=== PATIENT | female | born 1940 | race Caucasian/White ===

== ENCOUNTER 2025-01-28 19:55 | Emergency (ER) | payer MEDICARE, MEDICAID, SELFPAY ==
--- NOTE | 2025-01-28 20:01 | XR_ITS ---
Examination: AP chest single view One AP portable semiupright chest single view Date and time: January 28, 2025, 2053 hours Comparison March 01, 2023 INDICATIONS: Congestion and coughing 3 days. FINDINGS: No significant cardiac enlargement Ectatic thoracic aorta. No pneumonia or pulmonary edema Cervical orthopedic hardware IMPRESSION: No pneumonia or pulmonary edema
--- NOTE | 2025-01-28 20:02 | PD.EDURI ---
Upper Respiratory Inf. RME/HPI General Chief Complaint: Weakness Stated Complaint: GENERALIZED WEAKNESS Time Seen by Provider: 01/28/25 20:00 Arrival date/time: 01/28/25 19:55 Mode of arrival: EMS Limitations: no limitations RME / HPI RME / HPI Narrative: Patient is a 84-year-old female with a history of hypertension and COPD. She is here today with a 3-day history of runny nose, congestion, cough, and increased malaise. She normally uses a power chair for ambulation. She denies any fevers or chills. Has no chest pain. She has no vomiting but endorses some loose stools. She denies any blood with her loose stools. She has no urinary complaints. She states she went to her primary doctor today was evaluated, was advised to come to the ER for further evaluation but went home, called 911, and then was brought in. She has no other acute complaints or concerns. Related Data Home Medications ?Medication ?Instructions ?Recorded ?Confirmed albuterol sulfate 90 mcg/actuation 2 puff inhalation Q6H PRN sob 03/02/23 03/02/23 aerosol inhaler amlodipine 10 mg tablet 10 mg PO DAILY 03/02/23 03/02/23 baclofen 10 mg tablet 10 mg PO BIDPRN PRN Muscle Pain 03/02/23 03/02/23 cetirizine 10 mg tablet 10 mg PO DAILY 03/02/23 03/02/23 ergocalciferol (vitamin D2) 1,250 1,250 mcg PO QWEEK 03/02/23 03/02/23 mcg (50,000 unit) capsule fluticasone propionate 50 1 spray intranasal DAILY 03/02/23 03/02/23 mcg/actuation nasal spray,suspension zolpidem 10 mg tablet 10 mg PO HSPRN PRN Sleep 03/02/23 03/02/23 Previous Rx's ?Medication ?Instructions ?Recorded peg 3350-electrolytes 236 240 ml PO Q10M #4,000 mL 12/15/23 gram-22.74 gram-6.74 gram-5.86 gram solution (GaviLyte-G) Allergies Allergy/AdvReac Type Severity Reaction Status Date / Time No Known Allergies Allergy Unverified 12/13/22 10:02 Review of Systems Review of Systems Systems Reviewed: All systems reviewed, normal except as documented ED Exam General Limitations: Present no limitations General appearance: Present alert and in no apparent distress Head Head exam: Present atraumatic Eye Eye exam: Present normal appearance, PERRL and EOMI ENT ENT exam: Present normal exam, normal oropharynx and mucous membranes moist Neck Neck exam: Present normal inspection, full ROM and trachea midline Chest Chest inspection: Present normal inspection and symmetric chest wall rise Respiratory Respiratory exam: Present normal lung sounds bilaterally; Absent respiratory distress, wheezes or stridor Cardiovascular Cardiovascular exam: Present regular rate, normal rhythm and normal heart sounds Abdominal Exam Abdominal exam: Present soft; Absent distention, tenderness or guarding Extremities Exam Extremities exam: Present normal inspection and full ROM Back Exam Back exam: Present normal inspection and full ROM Neurological Exam Neurological exam: Present alert and oriented X3 Psychiatric Psychiatric exam: Present normal affect and normal mood Skin Skin exam: Present warm, dry, intact and normal color Course Quality Measures none Orders Category Date Time Status Bedside Influenza A&B Antigen Test NOW Care 01/28/25 20:01 Completed EKG (ED ONLY) *Do not use* NOW Care 01/28/25 20:01 Completed EKG (ED Only) Stat Exams 01/28/25 20:01 Ordered XR chest 1V Stat Exams 01/28/25 20:01 Completed BNP [B-Type Natriuretic Peptide] Stat Lab 01/28/25 20:21 Completed CBC Stat Lab 01/28/25 20:21 Completed CMP [Comprehensive Metabolic Panel] Stat Lab 01/28/25 20:21 Completed COVID-19 Antigen (In-House) Stat Lab 01/28/25 Ordered Lipase Stat Lab 01/28/25 20:21 Completed Mag [Magnesium] Stat Lab 01/28/25 20:21 Completed Troponin I Stat Lab 01/28/25 20:21 Completed UA, C/S IF [Urinalysis, C/S if Indicated] Stat Lab 01/28/25 22:20 Completed Acetaminophen Tab [Tylenol ES Tab] Med 01/28/25 22:52 Discontinued 1,000 mg PO X1 ONE Sodium Chloride 0.9% 1000 ml [Ns] 1,000 ml Med 01/28/25 21:22 Discontinued IV 999 mls/hr Vital Signs Vital signs: Vital Signs Temperature 97.6 F 01/28/25 20:03 Pulse Rate 86 01/28/25 20:03 Respiratory Rate 18 01/28/25 20:03 Blood Pressure 181/100 H 01/28/25 20:03 Pulse Oximetry (%) 93 L 01/28/25 20:03 Oxygen Delivery Method Room Air 01/28/25 20:03 Upper Respiratory Infection MDM Narrative MDM Narrative:: Patient is a 84-year-old female with a history of hypertension and COPD. She is here today with a 3-day history of runny nose, congestion, cough, and increased malaise. She normally uses a power chair for ambulation. She denies any fevers or chills. Has no chest pain. She has no vomiting but endorses some loose stools. She denies any blood with her loose stools. She has no urinary complaints. She states she went to her primary doctor today was evaluated, was advised to come to the ER for further evaluation but went home, called 911, and then was brought in. She has no other acute complaints or concerns. Patient data External records reviewed:: None Clinical information provided by:: patient and EMS Social determinants that could affect healthcare access:: none Patient has the following chronic illnesses:: Asthma, COPD, hypertension How is presenting disease/condition affected by chronic disease/condition?: exacerbated by Evaluation data The following diagnostics were reviewed and interpreted by me:: lab results (CBC is unremarkable, patient has hyponatremia sodium 130, bicarb is within normal limits at 25.6, creatinine 0.8, BNP is 234, chest x-ray shows no evidence of fluid overload or pneumonia, urinalysis unremarkable), radiology exam(s) (Clear expanded lungs without any mass or infiltrate.) and EKG tracing(s) Lab and/or radiology exams considered but not ordered:: n/a Interpretation Summary: Hyponatremia, COVID-19 Medications / Prescriptions Medications or Prescriptions considered but not ordered:: n/a Medication administrations:: Medication Administration History Discontinued Medications Acetaminophen (Acetaminophen 500 Mg Tablet) 1,000 mg PO X1 ONE Stop: 01/28/25 22:53 Sodium Chloride (Ns) 1,000 mls @ 999 mls/hr IV .Q1H1M ONE Stop: 01/28/25 22:22 Last Admin: 01/28/25 22:02 Dose: 999 mls/hr Documented By: SM See above Consultations Consultation(s) initiated? (list below): No Diagnosis Upper Respiratory Differential Diagnosis: upper respiratory infection, viral infection, influenza and pharyngitis Most likely diagnosis given after review of the tests above:: Hyponatremia, COVID-19 Admission Indicated Admission indicated?: not indicated Admission Request Was there a request for admission?: No Disposition Plan Disposition Plan: Discharge Discharge Attestation Discharge Attestation: The patient and all family members were given an opportunity to ask questions and understood the discharge instructions. Discharge instructions specifically effects, indications for sooner follow up or return to the emergency department, and the expected course of current diagnosis. Patient condition: Stable Discharge Plan Plan Patient Disposition: HOME (Self Care) Patient condition on transfer: Stable Prescriptions/Referrals Prescriptions/Med Rec: No Action cetirizine 10 mg tablet 10 mg PO DAILY Patient Comments: TAKE ONE TABLET BY MOUTH EVERY DAY FOR ALLERGY baclofen 10 mg tablet 10 mg PO BIDPRN PRN (Reason: Muscle Pain) Patient Comments: TAKE ONE TABLET BY MOUTH TWICE DAILY NEEDED FOR MUSCLE SPASMS ergocalciferol (vitamin D2) 1,250 mcg (50,000 unit) capsule 1,250 mcg PO QWEEK Patient Comments: TAKE ONE CAPSULE BY MOUTH ONCE A WEEK zolpidem 10 mg tablet 10 mg PO HSPRN PRN (Reason: Sleep) Patient Comments: TAKE ONE TABLET BY MOUTH AT BED TIME NEEDED FOR SLEEP amlodipine 10 mg tablet 10 mg PO DAILY Patient Comments: TAKE ONE TABLET BY MOUTH EVERY DAY FOR BLOOD PRESSURE albuterol sulfate 90 mcg/actuation HFA aerosol inhaler 2 puff INHALATION Q6H PRN (Reason: sob) Patient Comments: INHALE TWO PUFFS BY MOUTH EVERY 6 HOURS NEEDED FOR BREATHING AND SHORTNESS OF BREATH fluticasone propionate 50 mcg/actuation spray,suspension 1 spray intranasal DAILY Patient Comments: INSTILL ONE SPRAY IN EACH NOSTRIL EVERY DAY FOR ALLERGY Rx Instructions: 1 spray intranasally peg 3350-electrolytes [GaviLyte-G] 236-22.74-6.74 -5.86 gram recon soln 240 ml PO Q10M Qty: 4000 0RF Rx Instructions: until fecal effluent is clear Referrals: Delicia Bhakta PA-C [Primary Care Provider] - In 1 week Problem List Clinical Impression: COVID-19, Acute hyponatremia Patient/Caregiver Discharge Instructions Education Materials: COVID-19 Home Care Additional Instructions: - Maintain contact precautions as much as possible. - Use Tylenol and ibuprofen as needed for comfort. - Return here as needed for any worsening or emergent changes. Print Language: Bhutanese Stand Alone Forms: [facility] Award Info., Patient Portal Info Letter
[2025-01-28 20:03] VITALS: BP 181/100; PULSE 86; RESP 18; TEMP 36.4; O2SAT 93
[2025-01-28 20:33] LABS: Basophils # (Auto) 0.0 Thou/mm3 (0.0-0.2); Basophils % (Auto) 1 % (0-2.5); Eosinophils # (Auto) 0.0 Thou/mm3 (0.0-0.5); Eosinophils % (Auto) 1 % (0-10); Hematocrit 40.4 % (36.0-46.0); Hemoglobin 13.8 g/dL (12.0-16.0); Immature Granulocytes Auto 0.00 Thou/mm3 (0.00-0.00); Lymphocytes # (Auto) 1.6 Thou/mm3 (1.0-4.8); Lymphocytes % (Auto) 36 % (10-50); Mean Corpuscular HGB Conc 34.2 g/dl (31.0-37.0); Mean Corpuscular Hemoglobin 31.2 pg (25.0-35.0); Mean Corpuscular Volume 91 fL (80-100); Monocytes # (Auto) 0.6 Thou/mm3 (0.0-0.8); Monocytes % (Auto) 13 % (0-12); Neutrophils # (Auto) 2.2 Thou/mm3 (1.8-7.7); Neutrophils % (Auto) 50 % (37-80); Nucleated Red Blood Cell # 0.00 Thou/mm3 (0.00-0.00); Nucleated Red Blood Cell % 0 /100 WBC (0); Platelet Count 262 Thou/mm3 (140-440); RDW Standard Deviation 43.2 fL (36.4-46.3); Red Blood Count 4.43 Miln/mm3 (4.00-5.20); White Blood Count 4.4 Thou/mm3 (3.6-11.0)
[2025-01-28 20:46] VITALS: RESP 16; O2SAT 96; BMI 31.4
[2025-01-28 20:51] VITALS: BP 187/126; PULSE 84; RESP 19; O2SAT 94
[2025-01-28 20:51] LABS: B-Type Natriuretic Peptide 234 pg/mL (0-100)
[2025-01-28 21:03] LABS: Alanine Aminotransferase 15 U/L (10-49); Albumin, Serum 4.5 gm/dL (3.4-4.8); Albumin/Globulin Ratio 1.8 (1.2-2.2); Alkaline Phosphatase 52 U/L (46-116); Anion Gap 8 (7-16); Aspartate Amino Transferase 24 U/L (0-34); BUN/Creatinine Ratio 9 Ratio (12-20); Bilirubin,Total 0.5 mg/dL (0.3-1.2); Blood Urea Nitrogen 7 mg/dL (9-23); Calcium 9.7 mg/dL (8.3-10.6); Calcium (Corrected) 9.7 mg/dL (8.5-10.1); Carbon Dioxide 25.6 mMol/L (20.0-31.0); Chloride 96 mMol/L (98-107); Creatinine (Component) 0.8 mg/dL (0.6-1.3); Estimated Creatinine Clearance 47.7 mL/min (>60); Globulin 2.5 gm/dL (2.3-3.5); Glucose 106 mg/dL (74-106); Lipase 44 U/L (12-53); Magnesium 1.6 mg/dL (1.6-2.6); Osmolality,Calculated 258 (275-295); Potassium 3.8 mMol/L (3.4-5.1); Sodium 130 mMol/L (136-145); Total Protein 7.0 gm/dL (5.7-8.2); Troponin I 0.031 ng/mL (0.0-0.045); eGFR > 60 See Note
[2025-01-28 21:34] VITALS: BP 165/97; PULSE 80; RESP 18; O2SAT 97
[2025-01-28] MEDS: SODIUM CHLORIDE 0.9% 1000 ML 1,000 ML 999 ML IV (22:02)
[2025-01-28 22:37] LABS: Collection Type, Urine Voided
[2025-01-28 22:54] LABS: Amorphous Crystals,Urine Present (Absent); Bacteria,Urine Rare; Bilirubin,Urine Negative (Negative); Blood,Urine 1+ (Negative); Clarity,Urine Clear (Clear/Hazy); Color,Urine Colorless (Lt Yel-Yel); Culture Indicated,Urine Not Indicated; Glucose, Urine Negative (Negative); Ketones,Urine Trace (Negative); Leukocyte Esterase,Urine Positive (Negative); Nitrite,Urine Negative (Negative); PH,Urine 6.5 (5.0-7.0); Protein,Urine Negative (Neg - Trace); RBC,Urine 4 /hpf (0-3); Specific Gravity,Urine 1.005 (1.001-1.035); Squamous Epithelial Cell,Urine < 1 /hpf (0-5); Urobilinogen,Urine Negative mg/dL (0.0-1.0); WBC,Urine < 1 /hpf (0-5)
[2025-01-28] MEDS: ACETAMINOPHEN 500 MG TABLET 1000 MG PO (23:55)
[2025-01-29 00:13] VITALS: BP 167/82; PULSE 88; RESP 16; TEMP 36.4
--- NOTE | 2025-01-29 00:31 | PC.NURSE ---
PT ARRIVED TO ED FROM HOME BY EMS FOR GENRALIZED WEAKNESS AND CONGESTION. PT STATES THAT SHE HAS GENERALIZED WEAKNESS AND SHE HAS DIFFICULTY TO WALK. PT STATES SHE USES A WALKER AND A POWER CHAIR AT HOME. PT IS DISCHARGED. THIS RN ASKED PT IF THEY CAN CALL HER SON TO PICK HER UP BECAUSE SHE STATES THAT HER SON IS THE MAIN CAREGIVER. PT STATES THAT HER SON CAN NOT PICK HER UP BECAUSE HE HAS A BIG TRUCK. THIS RN ASKED HOW DOES SHE NORMALLY GO TO HER APPOINMENTS, PT SAYS WITH [facility]. THIS RN CLARIFED WITH CHARGE NURSE ABOUT SITUATION. 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 CHARGE NURSE STATES SHE WILL FIND TRANSPORT
== END 2025-01-29 01:07 | disposition home or self-care (01) ==
PROVIDERS: Physician Assistant Medical; Emergency Provider Emergency Medicine; PCP Physician Assistant
DX: U07.1 COVID-19 (principal); E87.1 Hypo-osmolality and hyponatremia; R94.31 Abnormal electrocardiogram [ECG] [EKG]
CPT/HCPCS: 36415; 71045; 80053; 81001; 83690; 83735; 83880; 84484; 85025; 87400; 87811; 93005; 96360; 96361; 99283; J7030; A9270